=== PATIENT | male | born 1965 | race Caucasian/White ===

== ENCOUNTER 2019-05-06 09:35 | Day surgery (SDC) | payer BC ==
[2019-05-04 12:29] VITALS: BMI 36.9
[~2019-05-06 09:35] MED LIST: DEXAMETHASONE SOD PHOSPHATE 10 MG/ML 1 ML VIAL IV ONE; DEXAMETHASONE SOD PHOSPHATE 4 MG/ML 1 ML VIAL IV ONE; FAMOTIDINE 20 MG/2 ML VIAL IV ONE; HYDROmorphone 0.5 MG/0.5 ML SYRINGE IVP PRN; LACTATED RINGERS 1,000 ML IV SCH; LIDOCAINE 1% 20 ML VIAL (10MG/ML) FOR IV START INTRADERMA PRN; MIDAZOLAM 2 MG/2 ML VIAL IV PRN; ONDANSETRON 4 MG/2 ML VIAL IVP ONE; SCOPOLAMINE 1.5MG/72HR PATCH TRANSDERM ONE
[2019-05-06] MEDS ORDERED: PHENYLEPHRINE-0.9% NACL SYG 1 MG/10 ML SYRINGE ONE (11:15)
[2019-05-06] MEDS ORDERED: ALBUTEROL INHALER 60 PUFF/8 GM INHALER INHALATION ONE (11:15)
[2019-05-06] MEDS ORDERED: PROPOFOL 10 MG/ML 20 ML VIAL IV ONE (11:15)
[2019-05-06] MEDS ORDERED: fentaNYL (PF) 50 MCG/ML 2 ML AMP ONE (11:15)
[2019-05-06] MEDS ORDERED: LIDOCAINE 1% INJ 10MG/ML (20 ML MDV) ONE (11:15)
[2019-05-06] MEDS ORDERED: MIDAZOLAM 2 MG/2 ML VIAL ONE (11:15)
[2019-05-06] MEDS ORDERED: diphenhydrAMINE 50 MG/ML 1 ML VIAL ONE (11:15)
[2019-05-06] MEDS ORDERED: SUCCINYLCHOLINE CHLORIDE 100 MG/5 ML SYR IV ONE (11:15)
[2019-05-06] MEDS ORDERED: KETAMINE 10 MG/ML 20 ML VIAL ONE (11:15)
[2019-05-06] MEDS ORDERED: ePHEDrine SULFATE/0.9% NACL/PF 50 MG/5 ML SYRINGE IV ONE (11:15)
[2019-05-06] MEDS ORDERED: LIDOCAINE 1%-EPI 1:100,000 20 ML VIAL SQ ONE ×2 (11:20)
--- NOTE | 2019-05-06 13:05 | P.OP ---
Date of Procedure: 05/06/19 Preoperative Diagnosis: Right parotid pleomorphic adenoma Postoperative Diagnosis: Same Procedure(s) Performed: Right superficial parotidectomy with facial nerve dissection and preservation EMG facial nerve monitoring Intraoperative EMG neurophysiologic testing Anesthesia: ARAVINDA Surgeon: Alexandre Ayon Estimated Blood Loss (ml): 5 Pathology: other (Right parotid mass) Condition: stable Disposition: PACU Indications for Procedure: This 53-year-old white male with a right parotid mass. He has had computed tomography scan which confirms this as well as fine-needle aspiration which was diagnostic for pleomorphic adenoma. Operative Findings: Approximate 2.3 cm x 1.8 cm ovoid smooth rounded well encapsulated parotid mass at the inferior aspect with a portion adjacent to and in contact with the marginal mandibular branch of the facial nerve and therefore the capsule was intact grossly however very close at this aspect of the dissection Description of Procedure: The patient was brought operative suite and placed in a supine position. The patient underwent induction of general anesthesia with oral endotracheal intubation without difficulty. The patient was prepped and draped in usual aseptic fashion. The [facility] facial nerve monitor was placed with the needle probes at the orbicularis martinez and orbicularis oculi and then tested and was working well. 1% lidocaine with 1 1000 epinephrine was infused at the incision site and left to work for 7 minutes vasoconstrictive effect. A doubly modified shortened Corona incision was then made starting in front of the earlobe and carried down onto the neck in curvilinear fashion. This is carried sharply through the skin and subcutaneous tissue and platysma layers down to the parotid itself. The mass was located at the inferior aspect of the parotid gland anterior to the sternocleidomastoid muscle. The greater auricular nerve was identified and the main trunk was left intact however there were small branches coursing over the mass that needed to be transected in order to remove this with the capsule intact. At the superior aspect of the mass dissection was carried down into the parotid tissue locating the inferior trunk of the facial nerve and in particular the marginal mandibular branch of facial nerve. Dissection continued from posterior to anterior directly on the capsule to excise the mass from this area. In other areas a cuff of normal parotid tissue was able to be taken to obtain more margin. The lesion was then removed from the surrounding tissue grossly entirely. The wound was checked and no residual tumor was noted grossly. The wound was irrigated with sterile normal saline copiously. There was excellent hemostasis noted. A #10 Jon-Srivastava drain was placed through separate stab incision. The platysmal layer was closed with inverted interrupted 3-0 Vicryl suture and subcutaneous layer closed with inverted interrupted 4-0 Vicryl suture and skin closed with running locking 5-0 Prolene suture. The drain was sutured to the skin with #2 silk suture. Bacitracin ointment and sterile dressings were placed. The patient was allowed to emerge from general anesthesia having tolerated procedure well was excised in the operating suite and transferred to postop recovery area in satisfactory condition. The facial functions was grossly intact the conclusion of the case. Note prior to closure the marginal mandibular branch of facial nerve was stimulated at 0.5 mA stimulator probe and was functioning well both by the monitor and lip movement.
[2019-05-06 13:11] VITALS: TEMP 97.2
[2019-05-06 13:33] VITALS: PULSE 92
[2019-05-06 14:04] VITALS: BP 141/74; RESP 16
== END 2019-05-06 14:25 | disposition home or self-care (01) ==
LOC: OR 09:35
PROVIDERS: ATTEND Otolaryngology
DX: D11.0 Benign neoplasm of parotid gland (principal); E78.00 Pure hypercholesterolemia, unspecified; I10 Essential (primary) hypertension; E78.5 Hyperlipidemia, unspecified; Z90.49 Acquired absence of other specified parts of digestive tract; Z96.653 Presence of artificial knee joint, bilateral; E66.01 Morbid (severe) obesity due to excess calories; Z68.37 Body mass index [BMI] 37.0-37.9, adult; Z79.1 Long term (current) use of non-steroidal anti-inflammatories (NSAID); Z79.899 Other long term (current) drug therapy
CPT/HCPCS: 94660; 88307; 42415; J2250; J1200; J1100; J2405; J0690; J2001; J3010; J2370; J0330; J2704